=== PATIENT | male | born 1975 | race Asian ===

== ENCOUNTER 2019-10-01 18:19 | Inpatient (IN) ==
[2019-10-01] MEDS ORDERED: SODIUM CHLORIDE 0.9% 1000ML 1,000 ML IV ONE (18:33)
[2019-10-01] MEDS ORDERED: SODIUM CHLORIDE 0.9% 250 ML IV PRN ×2 (18:45→21:32)
[2019-10-01 18:59] LABS: iSTAT Creatinine 1.1 mg/dl (0.6-1.3); iSTAT Hemoglobin 5.4 g/dl (14.0-18.0); iSTAT Ionized Calcium 1.14 mmol/l (1.12-1.32); iSTAT Potassium 3.8 mmol/L (3.3-5.0)
[2019-10-01 19:10] LABS: Partial Thromboplastin Ratio 0.8; Partial Thromboplastin Time 23.4 Seconds (21.0-31.0)
[2019-10-01 19:19] LABS: Hematocrit (blood only) 15.1 % (42-52); Mean Corpuscular Hemoglobin 16.9 pg (25-34); Mean Corpuscular Hgb Conc 26.5 g/dL (32-36); Platelet Count 283 K/uL (130-400); Red Blood Count 2.36 M/uL (4.7-6.1); White Blood Count 3.33 K/uL (4.8-10.8)
[2019-10-01 19:23] LABS: Albumin Level 4.1 gm/dl (3.4-5.0); BUN Creatinine Ratio 7.7 (10-20); Bilirubin Direct 0.1 mg/dl (0-0.2); Calcium 8.2 mg/dl (8.5-10.1); Creatinine Clr Calc Pharmacy 73.4 ml/min; Est GFR (African American) 88.6; Est GFR (Non-African American) 76.4; Potassium 3.7 mmol/L (3.5-5.1)
[2019-10-01 19:26] LABS: Bilirubin,Total 0.6 mg/dl (0.2-1); Total Protein 7.1 gm/dl (6.4-8.2)
--- NOTE | 2019-10-01 19:39 | XRay Report ---
SINGLE VIEW CHEST CLINICAL HISTORY: Atypical chest pain. Anemia. FINDINGS: 2 AP, portable, upright chest radiographs are obtained. No prior studies are available for comparison at the time of dictation. The cardiomediastinal silhouette is unremarkable. The lungs and pleural spaces are clear. No pneumothorax is seen. The bony thorax is grossly intact. IMPRESSION: No active disease in the chest. ACT 112: Negative or not required by law. Electronically signed by: Zeb Neil M.D. 10/01/2019 7:38 PM
[2019-10-01 19:44] LABS: Anisocytosis Present; Basophils # (auto) 0.02 K/uL (0-0.2); Basophils % (auto) 0.6 %; Eosinophils # (auto) 0.03 K/uL (0-0.5); Eosinophils % (auto) 0.9 %; Giant Platelets 1+; Hypochromasia Present; Immature Granulocytes # (auto) 0.01 K/uL (0.00-0.02); Immature Granulocytes % (auto) 0.3 %; Lymphocytes # (auto) 0.76 K/uL (1.2-3.4); Lymphocytes % (auto) 22.8 %; Microcytosis Present; Monocytes # (auto) 0.38 K/uL (0.11-0.59); Monocytes % (auto) 11.4 %; Neutrophils # (auto) 2.13 K/uL (1.4-6.5); Polychromasia 1+; Schistocytes 1+; Tear Drop Cells Occasional
[2019-10-01] MEDS ORDERED: PANTOprazole 80 MG in DEXTROSE 5% 100 ML IV ONE (19:45)
[2019-10-01 19:48] LABS: Mean Platelet Volume 9.5 fL (7.4-10.4); RDW Coefficient of Variation 17.4 % (11.5-14.5); RDW Standard Deviation 41.1 fL (36.4-46.3); Reticulocyte % 1.5 % (0.5-2.0); Reticulocytes # 0.03 10^6/uL (0.02-0.10)
[2019-10-01] MEDS ORDERED: PANTOprazole 40 MG in DEXTROSE 5% 100 ML IV SCH (20:00)
[2019-10-01 20:13] LABS: T4 Free Thyroxine 0.93 ng/dl (0.8-1.6)
--- NOTE | 2019-10-01 20:22 | History & Physical Report ---
Date of Service October 01, 2019 Assessment & Plan (1) Lower GI bleed: This is a 44-year-old male who has no significant past medical history who presents to ED at the recommendation of provider secondary to anemia. In ED he remained hemodynamically stable. He was mildly tachycardic in the 90s. His H&H on admission was 4.0 and 15.1, WBC 3.33, BUN 9, creatinine 1.17, glucose 109, TSH WNL. 2 units PRBC have been ordered along with PPI bolus and gtt. Pt with active GIB x 1.5 yrs per pt. BRBPR with each BM. ? lower vs PUD although bun/cr stable, no significant epigastric pain, +hx of excedrin use daily CBC reveals microcytic anemia. Iron level 8, ferritin 0.8 Admit to PCU Transfer 2 units PRBC and repeat H&H Transfuse until hemoglobin greater than 7, lasix 20mg IV in between units Consult GI - discussed with Dr. Rizo PPI oral BID clear liquid diet NPO after midnight start on iron supplement Hemoglobin electrophoresis pending, rule out thalassemia (2) Microcytic anemia: r/o thalassemia Ferritin 0.8, iron 8 Iron supplement DVT ppx: NONE 2/2 to GIB Follow up: PCP at [facility] Disposition: pt admitted to PCU Pt was seen and examined in collaboration with Dr. Dwyer, please see addendum History of Present Illness Chief Complaint: Referred by provider secondary to anemia Primary Care Provider: [facility] This is a 44-year-old male who has no significant past medical history who presents to ED at the recommendation of provider secondary to anemia. He currently resides in [facility]. He states for the past 1.5 years he has been having bright red blood per rectum with every bowel movement. He only has blood whenever he moves his bowels. He moves his bowels every day to every other day. They are formed and normal for him. He elicits clotting of bright red blood filling toilet bowl and intermixed with bowel. He denies any painful bowel movements. His last BM was yesterday. Over the past 3 to 4 weeks he also admits to being dizzy with movement, substernal chest pain with movement and CORTEZ. All symptoms resolved within 1 to 2 minutes of resting. He becomes more easily fatigued and complains of myalgias. He denies of any recent illness. Over the past 3 to 4 weeks he states he has been unable to tolerate coffee. He would usually drink 2 to 3 cups daily but now is only able to drink 1 without getting, "sick to his stomach." Because of lack of caffeine he has been taking Excedrin 1-3 times daily for the past 3 to 4 weeks. He does elicit that he has been taking Pepcid for the past 3 months. Prior to that he was taking Zantac. He denies any alcohol use or any history of rectal bleeding in the past. He states that his father has a history of rectal bleeding due to hemorrhoids. He denies any family history of anemia. His maternal grandmother has a history of stomach cancer. He was a prior abuser of tobacco but has since ceased for the past 6 months since being in custodial. He denies any syncope, chest pain at rest, shortness of breath at rest, cough, hemoptysis, nausea, vomiting, abdominal pain, diarrhea, dysuria, increased urgency or frequency with urination. According to custodial guards he eats a soy-based diet and lacks meat. In ED he remained hemodynamically stable. He was mildly tachycardic in the 90s. His H&H on admission was 4.0 and 15.1, WBC 3.33, BUN 9, creatinine 1.17, glucose 109, TSH WNL. Iron studies pending on admission. 2 units PRBC have been ordered along with PPI bolus and gtt. Allergies Allergy/AdvReac Type Severity Reaction Status Date / Time papaya Allergy SHORTNESS Verified 10/01/19 20:03 OF BREATH pineapple Allergy SHORTNESS Verified 08/31/11 16:52 OF BREATH CANTALOPE AdvReac Unknown Uncoded 10/01/19 20:04 HONEYDEW AdvReac Unknown Uncoded 10/01/19 20:04 Home Medications Home Medications Medication Instructions Recorded Confirmed Type cagkfuo-uwahymrsyhyas-qknpjdfm 1 tab PO TID 10/01/19 10/01/19 History [Excedrin Extra Strength] carboxymethylcellulose sodium 1 drp OPR HS 10/01/19 10/01/19 History [Refresh Liquigel] famotidine [Pepcid] 20 mg PO BID 10/01/19 10/01/19 History Past Med/Surg History Medical History (Updated 10/01/19 @ 20:29 by Coral Larsen PA-C) No significant past medical history Surgical History (Updated 10/01/19 @ 20:23 by Coral Larsen PA-C) No significant past surgical history Family History (Updated 10/01/19 @ 20:24 by Coral Larsen PA-C) Grandmother (Maternal) Stomach cancer Father Bleeding hemorrhoid Social History (Updated 10/01/19 @ 20:25 by Coral Larsen PA-C) Preferred Language: Filipino Communication Ability: Effective Current Living Situation: Other Current Living Situation Comment: [facility] Feels Safe at Home: Yes Smoking Status: Former smoker Hx Alcohol Use: No Review of Systems Review of Systems: All systems reviewed & are unremarkable except as noted in HPI & below Physical Exam Physical Exam: Constitutional: WD/WN, +PALLOR, vitals as above, NAD, sitting up in bed, pleasant, conversing easily Head: Normocephalic, Atraumatic Eyes: PERRL, conjunctivae normal, anicteric sclerae ENMT: external ear and nose normal, oropharynx normal Neck: trachea midline, no thyromegaly normal visual inspection Respiratory: normal respiratory effort, lungs clear to auscultation, no wheeze, rales, rhonchi. Normal insp/exp effort, no accessory muscle use Cardiovascular: tachycardic rate, no murmur, no edema Vessels: no JVD or carotid bruit Chest: normal inspection of chest Abdomen: normal bowel sounds, soft, mild epigastric tenderness, no rebound, guarding, rigidity, no hepatosplenomegaly Musculoskeletal: no cyanosis or clubbing, extremities motor strength 5/5 Skin: no rashes, warm and dry normal turgor Neurologic: PERRL, EOMI, accommodation nl, no face palsy, no dysarthria CN's II-XI intact bilaterally and moves all extremities Psychiatric: A+Ox3, euthymic affect Lymphatic: no cervical or axillary lymphadenopathy : no external hemorrhoid Results & Data Vital Signs (Past 12 Hours) Vital Signs Temp Pulse Resp BP Pulse Ox 10/01/19 19:50 37.4 C 10/01/19 19:00 98 H 18 147/85 H 100 10/01/19 18:46 111 H 14 10/01/19 18:44 104 H 16 156/82 H 10/01/19 18:24 36.8 C 91 H 20 149/74 H 100 Laboratory Results Short CBC 10/01/19 Range/Units 18:41 WBC 3.33 L (4.8-10.8) K/uL Hgb 4.0 L* (14.0-18.0) g/dL Hct 15.1 L* (42-52) % Plt Count 283 (130-400) K/uL BMP 10/01/19 18:41 Sodium 138 Potassium 3.7 Chloride 107 Carbon Dioxide 25 BUN 9 Creatinine 1.17 Glucose 109 H Calcium 8.2 L Liver Function 10/01/19 Range/Units 18:41 Total Bilirubin 0.6 (0.2-1) mg/dl Direct Bilirubin 0.1 (0-0.2) mg/dl AST 4 L (15-37) U/L ALT 12 (12-78) U/L Alkaline Phosphatase 36 L (45-117) U/L Albumin 4.1 (3.4-5.0) gm/dl Diagnostic Findings CXR: IMPRESSION: No active disease in the chest. Medications Administered Discontinued Medications Sodium Chloride (Nss 1000ml) 1,000 mls @ 999 mls/hr IV .Q1H1M ONE Stop: 10/01/19 19:33 Last Infusion: 10/01/19 19:46 Dose: 0 mls/hr Documented by: [id number] Admin: 10/01/19 18:45 Dose: 999 mls/hr Documented by: [id number] Pantoprazole Sodium 80 mg/ (Dextrose) 120 mls @ 480 mls/hr IV NOW ONE Stop: 10/01/19 19:59 Last Admin: 10/01/19 20:13 Dose: 480 mls/hr Documented by: [id number] ECG Rate (beats per minute): 93 Rhythm: normal sinus Code Status & VTE Plan Code Status Full Code VTE Prophylaxis Plan VTE Prophylaxis will be ordered: No Supervising Physician Co-Signing Physician Notes Attending addendum The patient was seen in the emergency room He has been complaining of bright red blood per rectum painless for the last 3 or 4 weeks Condition has gotten worse for the last 3 or 4 days with "exertional shortness of breath and dizziness Noted to have hemoglobin of 4 at presentation No acute symptoms at rest On examination Very pale looking without distress Hemodynamically stable Chest-clear to auscultate bilaterally Heart-S1-S2, regular Abdomen-benign. 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
[2019-10-01 20:26] LABS: Ferritin 0.8 ng/ml (8-388); Thyroid Stimulating Hormone 1.41 uIu/ml (0.300-4.500)
[2019-10-01] MEDS ORDERED: FUROSEMIDE 40 MG/4 ML VIAL IV ONE (21:32)
[2019-10-01] MEDS ORDERED: ACETAMINOPHEN 325 MG TAB PO PRN (21:32)
[2019-10-01] MEDS ORDERED: ALUMINUM/MAGNESIUM SUSP 30 ML UDC PO PRN (21:32)
[2019-10-01] MEDS ORDERED: FUROSEMIDE 20 MG in SYRINGE 0 ML IV ONE (21:45)
[2019-10-01] MEDS: PANTOprazole 40 MG TAB PO SCH (22:14)
--- NOTE | 2019-10-02 00:06 | Emergency Department Note ---
Entered by Deepa Eddy acting as a scribe for History of Present Illness General Chief complaint: Abnormal Labs/Diagnostic Testing Stated complaint: CRITICAL LAB Time Seen by Provider: 10/01/19 18:29 Source: patient History of Present Illness Onset (ago): week(s) 4 Location: pelvis (blood in stools) Pain Consistency: + other (worsening) Relieved By: + none Associated symptoms: + denies other symptoms (abdominal pain), + shortness of breath and + other (dizziness) The patient is a 44 year old M who presents to the Emergency Room with complaints of worsening rectal bleeding that started 4 weeks ago. The patient is a prisoner. The patient states that he has had blood in his stools for the past year and a half. He describes his rectal bleeding as dripping. He notes that his rectal bleeding worsened 4 weeks ago. He states that he also experiences shortness of breath and dizziness. The patient was referred to the ED today, from the group home, due to his hemoglobin level being less than 4. The patient had a hemoglobin level of 3.9, as per recent lab work done on September 30, 2019. He denies that he is currently experiencing abdominal pain. He also denies any drug use, anal sex, and transfusions in the past. He states that he does not have any other medical problems. Home Medications Home Medications Medication Instructions Recorded Confirmed Type cowwjng-rbzkxxcdnxibe-qpdyeqvg 1 tab PO TID 10/01/19 10/01/19 History [Excedrin Extra Strength] carboxymethylcellulose sodium 1 drp OPR HS 10/01/19 10/01/19 History [Refresh Liquigel] famotidine [Pepcid] 20 mg PO BID 10/01/19 10/01/19 History Allergies Allergy/AdvReac Type Severity Reaction Status Date / Time papaya Allergy SHORTNESS Verified 10/01/19 20:03 OF BREATH pineapple Allergy SHORTNESS Verified 08/31/11 16:52 OF BREATH CANTALOPE AdvReac Unknown Uncoded 10/01/19 20:04 HONEYDEW AdvReac Unknown Uncoded 10/01/19 20:04 Past Med/Surg History Medical History (Updated 10/01/19 @ 22:44 by Deepa Eddy) No significant past medical history Surgical History (Updated 10/01/19 @ 20:23 by Coral L. Pataky, PA-C) No significant past surgical history Family History (Updated 10/01/19 @ 20:24 by Coral Larsen PA-C) Grandmother (Maternal) Stomach cancer Father Bleeding hemorrhoid Social History (Updated 10/01/19 @ 20:25 by Coral Larsen PA-C) Preferred Language: Syrian Communication Ability: Effective Loss Prevention Specialist Required: No Beliefs That Will Affect Care: None Current Living Situation: Other Current Living Situation Comment: [facility] Feels Safe at Home: Yes Safety Concerns: Feels Safe At This Time Smoking Status: Never smoker Hx Alcohol Use: No Hx Substance Use: No Review of Systems See HPI for pertinent positives & negatives. and A total of 10 systems reviewed and were otherwise negative Physical Exam Vital Signs Vital Signs - 24 hr 10/01/19 18:24 10/01/19 18:44 10/01/19 18:46 Temperature 36.8 C Temperature Source Oral Pulse Rate 91 H 104 H 111 H Pulse Rate from SpO2 Sensor Respiratory Rate 20 16 14 Respiratory Depth Normal Blood Pressure 149/74 H 156/82 H Blood Pressure Mean 99 108 Blood Pressure Position Sitting Pulse Oximetry 100 Oxygen Delivery Method Room Air Sepsis Recent Fever Within 48 Hours No Sepsis New/Unexplained Change in Mental Status No Sepsis Action Taken by Nursing No Action Required 10/01/19 19:00 10/01/19 19:15 10/01/19 19:30 Temperature Temperature Source Pulse Rate 98 H 99 H 96 H Pulse Rate from SpO2 Sensor 98 H 102 H 93 H Respiratory Rate 18 17 18 Respiratory Depth Blood Pressure 147/85 H 132/79 Blood Pressure Mean 102 103 Blood Pressure Position Pulse Oximetry 100 100 100 Oxygen Delivery Method Room Air Sepsis Recent Fever Within 48 Hours Sepsis New/Unexplained Change in Mental Status Sepsis Action Taken by Nursing 10/01/19 19:31 10/01/19 19:45 10/01/19 19:50 Temperature 37.4 C Temperature Source Oral Pulse Rate 100 H 97 H Pulse Rate from SpO2 Sensor 99 H 95 H Respiratory Rate 25 H 29 H Respiratory Depth Blood Pressure Blood Pressure Mean Blood Pressure Position Pulse Oximetry 100 100 Oxygen Delivery Method Sepsis Recent Fever Within 48 Hours Sepsis New/Unexplained Change in Mental Status Sepsis Action Taken by Nursing 10/01/19 20:00 10/01/19 20:01 Temperature Temperature Source Pulse Rate 96 H 96 H Pulse Rate from SpO2 Sensor 97 H 97 H Respiratory Rate 22 19 Respiratory Depth Blood Pressure 150/85 H Blood Pressure Mean 111 Blood Pressure Position Pulse Oximetry 100 100 Oxygen Delivery Method Sepsis Recent Fever Within 48 Hours Sepsis New/Unexplained Change in Mental Status Sepsis Action Taken by Nursing GENERAL: He is oriented to person, place, and time. He appears pale. He does not appear distressed. HENT: Exam performed. - Head: Normocephalic and atraumatic. - Right Ear: External ear normal. No mastoid tenderness. - Left Ear: External ear normal. No mastoid tenderness. - Mouth/Throat: The oropharynx is clear and moist. No trismus in the jaw. No dental abscesses or uvula swelling. No oropharyngeal exudate or tonsillar abscesses. EYES: Conjunctivae and EOM are normal. Pupils are equal, round, and reactive to light. Right eye exhibits no discharge. Left eye exhibits no discharge. No scleral icterus. NECK: Normal range of motion. Neck supple. No JVD present. No spinous process tenderness present. No carotid bruit present. No rigidity. No tracheal deviation and normal range of motion present. No Brudzinski's sign and no Kernig's sign noted. CV: Tachycardic rate, regular rhythm, normal heart sounds and intact distal pulses. There is no peripheral edema. Palpable radial pulses bue. PULM/CHEST: Effort normal and breath sounds normal. No respiratory distress. No stridor. He has no wheezes. He has no rales. - Chest Wall: He exhibits no tenderness. ABD: The abdomen is soft. Bowel sounds are normal. He has no distension. No mass is present. There is no tenderness. There is no rebound, no guarding, no Jimenez's sign and no tenderness at McBurney's point. Rovsig negative. Rectal exam: Hemoccult negative MUSC/SKEL: Normal range of motion. There is no peripheral edema, tenderness or deformity. LYMPH: No cervical adenopathy. NEURO: He is alert and oriented to person, place, and time. He has normal strength. No cranial nerve deficit or sensory deficit. Coordination and gait normal. GCS eye subscore is 4. GCS verbal subscore is 5. GCS motor subscore is 6. Cerebellar tests wnl. SKIN: Skin is warm and dry. He is not diaphoretic. He is pale. PSYCH: He has a normal mood and affect. Behavior is normal. Judgment and thought content normal. Course Course 183: The patient was evaluated in room B7. A complete history and physical exam was performed. 2012: Labs show a hemoglobin of 4. 2 units of packed red blood cells were ordered and blood consent was signed. [facility] Patient also started on Protonix. I reviewed the patient's case with Dr. Salcido, [facility]. He will evaluate the patient for further management. Administered Medications Pantoprazole Sodium (Protonix) 40 mg PO BID GEOVANNA Stop: 10/31/19 21:31 Last Admin: 10/01/19 22:14 Dose: 40 mg Documented by: [id number] Discontinued Medications Sodium Chloride (Nss 1000ml) 1,000 mls @ 999 mls/hr IV .Q1H1M ONE Stop: 10/01/19 19:33 Last Infusion: 10/01/19 19:46 Dose: 0 mls/hr Documented by: [id number] Admin: 10/01/19 18:45 Dose: 999 mls/hr Documented by: [id number] Pantoprazole Sodium 80 mg/ (Dextrose) 120 mls @ 480 mls/hr IV NOW ONE Stop: 10/01/19 19:59 Last Infusion: 10/01/19 20:28 Dose: 0 mls/hr Documented by: [id number] Admin: 10/01/19 20:13 Dose: 480 mls/hr Documented by: [id number] Pantoprazole Sodium 40 mg/ (Dextrose) 100 mls @ 20 mls/hr IV Q5H GEOVANNA Stop: 10/31/19 19:59 Last Infusion: 10/01/19 22:30 Dose: 0 mg/hr, 0 mls/hr Documented by: [id number] Admin: 10/01/19 20:31 Dose: 8 mg/hr, 20 mls/hr Documented by: [id number] Furosemide 20 mg/ Syringe 2 mls @ 4 mls/min IV ONE ONE Stop: 10/01/19 21:46 Last Admin: 10/01/19 22:14 Dose: 4 mls/min Documented by: [id number] Critical Care Time Critical Care Time: Yes Total Critical Care Time: 45 I have personally spent 45 minutes of critical care time in the direct manageme nt of this patient. This includes bedside care, interpretation of diagnostic studies, and testing, discussion with consultants, patient, and family members, and other required patient management activities. This 45 minutes is in excess of all separately billable procedures. Medical Decision Making Medical Records Attestation: I reviewed the patient's medical records. Home Medications Current Medication List: was personally reviewed by me Laboratory Data Attestation: I reviewed the patient's lab results. Result diagrams: 10/01/19 18:41 10/01/19 18:41 Lab Results 10/01/19 10/01/19 10/01/19 Range/Units 18:41 18:41 18:41 WBC 3.33 L (4.8-10.8) K/uL RBC 2.36 L (4.7-6.1) M/uL Hgb 4.0 L* (14.0-18.0) g/dL POC Hgb (14.0-18.0) g/dl Hct 15.1 L* (42-52) % POC Hct (42-52) % MCV 64.0 L (80-100) fL MCH 16.9 L (25-34) pg MCHC 26.5 L (32-36) g/dL RDW Std Deviation 41.1 (36.4-46.3) fL RDW Coeff of Liberty 17.4 H (11.5-14.5) % Plt Count 283 (130-400) K/uL MPV 9.5 (7.4-10.4) fL Immature Gran % (Auto) 0.3 % Neut % (Auto) 64.0 % Lymph % (Auto) 22.8 % Chase % (Auto) 11.4 % Eos % (Auto) 0.9 % Baso % (Auto) 0.6 % Reticulocyte % (Auto) 1.5 (0.5-2.0) % Immature Gran # (Auto) 0.01 (0.00-0.02) K/uL Neut # (Auto) 2.13 (1.4-6.5) K/uL Lymph # (Auto) 0.76 L (1.2-3.4) K/uL Chase # (Auto) 0.38 (0.11-0.59) K/uL Eos # (Auto) 0.03 (0-0.5) K/uL Baso # (Auto) 0.02 (0-0.2) K/uL Reticulocyte # 0.03 (0.02-0.10) 10^6/uL Giant Platelets 1+ Polychromasia 1+ Hypochromasia Present Anisocytosis Present Microcytosis Present Tear Drop Cells Occasional Schistocytes 1+ PT 11.0 (9.0-12.0) Seconds INR 1.0 (0.9-1.1) APTT 23.4 (21.0-31.0) Seconds PTT Ratio 0.8 POC Sodium (135-144) mmol/L Sodium (136-145) mmol/L POC Potassium (3.3-5.0) mmol/L Potassium (3.5-5.1) mmol/L POC Chloride (101-112) mmol/L Chloride (98-107) mmol/L Carbon Dioxide (21-32) mmol/L POC Total CO2 (24-31) mEq/l Anion Gap (3-11) POC Anion Gap (16-25) mmol/L POC BUN (7-18) mg/dl BUN (7-18) mg/dl Creatinine (0.6-1.4) mg/dl POC Creatinine (0.6-1.3) mg/dl Est Cr Clr Drug Dosing ml/min Est GFR ( Amer) Est GFR (Non-Af Amer) BUN/Creatinine Ratio (10-20) Glucose (70-99) mg/dl POC Glucose (other) (70-99) mg/dl Calcium (8.5-10.1) mg/dl POC Ioniz Calcium America (1.12-1.32) mmol/l Iron (35-175) mcg/dl TIBC (250-450) mcg/dl Transferrin (200-360) mg/dl Ferritin (8-388) ng/ml Total Bilirubin (0.2-1) mg/dl Direct Bilirubin (0-0.2) mg/dl AST (15-37) U/L ALT (12-78) U/L Alkaline Phosphatase (45-117) U/L Total Protein (6.4-8.2) gm/dl Albumin (3.4-5.0) gm/dl TSH (0.300-4.500) uIu/ml Free T4 (0.8-1.6) ng/dl Blood Type A Positive Blood Type Recheck Antibody Screen NEGATIVE Crossmatch See Detail 10/01/19 10/01/19 10/01/19 Range/Units 18:41 18:44 19:27 WBC (4.8-10.8) K/uL RBC (4.7-6.1) M/uL Hgb (14.0-18.0) g/dL POC Hgb 5.4 L* (14.0-18.0) g/dl Hct (42-52) % POC Hct 16 L* (42-52) % MCV (80-100) fL MCH (25-34) pg MCHC (32-36) g/dL RDW Std Deviation (36.4-46.3) fL RDW Coeff of Liberty (11.5-14.5) % Plt Count (130-400) K/uL MPV (7.4-10.4) fL Immature Gran % (Auto) % Neut % (Auto) % Lymph % (Auto) % Chase % (Auto) % Eos % (Auto) % Baso % (Auto) % Reticulocyte % (Auto) (0.5-2.0) % Immature Gran # (Auto) (0.00-0.02) K/uL Neut # (Auto) (1.4-6.5) K/uL Lymph # (Auto) (1.2-3.4) K/uL Chase # (Auto) (0.11-0.59) K/uL Eos # (Auto) (0-0.5) K/uL Baso # (Auto) (0-0.2) K/uL Reticulocyte # (0.02-0.10) 10^6/uL Giant Platelets Polychromasia Hypochromasia Anisocytosis Microcytosis Tear Drop Cells Schistocytes PT (9.0-12.0) Seconds INR (0.9-1.1) APTT (21.0-31.0) Seconds PTT Ratio POC Sodium 139 (135-144) mmol/L Sodium 138 (136-145) mmol/L POC Potassium 3.8 (3.3-5.0) mmol/L Potassium 3.7 (3.5-5.1) mmol/L POC Chloride 103 (101-112) mmol/L Chloride 107 (98-107) mmol/L Carbon Dioxide 25 (21-32) mmol/L POC Total CO2 24 (24-31) mEq/l Anion Gap 6.0 (3-11) POC Anion Gap 17.0 (16-25) mmol/L POC BUN 8 (7-18) mg/dl BUN 9 (7-18) mg/dl Creatinine 1.17 (0.6-1.4) mg/dl POC Creatinine 1.1 (0.6-1.3) mg/dl Est Cr Clr Drug Dosing 73.4 ml/min Est GFR ( Amer) 88.6 Est GFR (Non-Af Amer) 76.4 BUN/Creatinine Ratio 7.7 L (10-20) Glucose 109 H (70-99) mg/dl POC Glucose (other) 109 H (70-99) mg/dl Calcium 8.2 L (8.5-10.1) mg/dl POC Ioniz Calcium America 1.14 (1.12-1.32) mmol/l Iron 8 L (35-175) mcg/dl TIBC 439 (250-450) mcg/dl Transferrin 347 (200-360) mg/dl Ferritin 0.8 L (8-388) ng/ml Total Bilirubin 0.6 (0.2-1) mg/dl Direct Bilirubin 0.1 (0-0.2) mg/dl AST 4 L (15-37) U/L ALT 12 (12-78) U/L Alkaline Phosphatase 36 L (45-117) U/L Total Protein 7.1 (6.4-8.2) gm/dl Albumin 4.1 (3.4-5.0) gm/dl TSH 1.410 (0.300-4.500) uIu/ml Free T4 0.93 (0.8-1.6) ng/dl Blood Type Blood Type Recheck A Positive Antibody Screen Crossmatch Imaging Data Radiologist's Impression: Radiology results as stated below per my review and the radiologist's interpretation: SINGLE VIEW CHEST CLINICAL HISTORY: Atypical chest pain. Anemia. FINDINGS: 2 AP, portable, upright chest radiographs are obtained. No prior studies are available for comparison at the time of dictation. The cardiomediastinal silhouette is unremarkable. The lungs and pleural spaces are clear. No pneumothorax is seen. The bony thorax is grossly intact. IMPRESSION: No active disease in the chest. ACT 112: Negative or not required by law. Electronically signed by: Zeb Neil M.D. 10/01/2019 7:38 PM ECG Data Attestation: I personally reviewed and interpreted this ECG as follows: Indication: + SOB/dyspnea Rate (beats per minute): 93 Rhythm: + sinus rhythm ECG Intervals/blocks: + Normal QRS, + Normal ND and + Normal QT-c ECG ST segments: no ST depression and no ST elevation Blood Pressure Blood Pressure Findings: Elevated blood pressure Blood Pressure Disposition: further management by hospitalist MDM Narrative Labs show a hemoglobin of 4. 2 units of packed red blood cells were ordered and blood consent was signed. [facility] Patient also started on Protonix. I reviewed the patient's c ase with Dr. Salcido, [facility]. He will evaluate the patient for further management. Impression & Plan GI bleed, Anemia Discharge Plan Visit Data *Final* Discharge Date/Time: 10/01/19 21:30 Chief Complaint: Abnormal Labs/Diagnostic Testing Stated Complaint: CRITICAL LAB ED Provider: Silvestre Morel Discharge Problem: GI bleed, Anemia Patient Disposition: Admitted As Inpatient Discharge Instructions Interventions: ED Discharge Assessment Last Done: 10/01/19 21:30 Discharge Problem: GI bleed Qualifiers: GI bleed type/associated pathology: unspecified gastrointestinal hemorrhage type Qualified Code(s): K92.2 - Gastrointestinal hemorrhage, unspecified Anemia Qualifiers: Anemia type: unspecified type Qualified Code(s): D64.9 - Anemia, unspecified The scribe's documentation has been prepared under my direction and personally reviewed by me in its entirety. I confirm that the note above accurately reflects all work, treatment, procedures, and medical decision making performed by me.
[2019-10-02 01:58] LABS: BUN Creatinine Ratio 6.9 (10-20); Calcium 8.4 mg/dl (8.5-10.1); Est GFR (African American) 105.8; Est GFR (Non-African American) 91.3; Potassium 3.5 mmol/L (3.5-5.1)
[2019-10-02 02:09] LABS: Hematocrit (blood only) 20.4 % (42-52); Hemoglobin 6.2 g/dL (14.0-18.0); Mean Corpuscular Hgb Conc 30.4 g/dL (32-36); Mean Corpuscular Volume 72.3 fL (80-100); Mean Platelet Volume 8.8 fL (7.4-10.4); Platelet Count 219 K/uL (130-400); RDW Coefficient of Variation 22.7 % (11.5-14.5); RDW Standard Deviation 59.7 fL (36.4-46.3); Red Blood Count 2.82 M/uL (4.7-6.1); White Blood Count 4.46 K/uL (4.8-10.8)
[2019-10-02 02:10] LABS: Anisocytosis Present; Basophils # (auto) 0.02 K/uL (0-0.2); Basophils % (auto) 0.4 %; Eosinophils # (auto) 0.05 K/uL (0-0.5); Eosinophils % (auto) 1.1 %; Immature Granulocytes # (auto) 0.01 K/uL (0.00-0.02); Immature Granulocytes % (auto) 0.2 %; Lymphocytes # (auto) 0.73 K/uL (1.2-3.4); Lymphocytes % (auto) 16.4 %; Monocytes # (auto) 0.42 K/uL (0.11-0.59); Monocytes % (auto) 9.4 %; Neutrophils # (auto) 3.23 K/uL (1.4-6.5); Neutrophils % (auto) 72.5 %; Polychromasia 1+
[2019-10-02] MEDS ORDERED: SODIUM CHLORIDE 0.9% 250 ML IV PRN (02:21)
[2019-10-02] MEDS ORDERED: FUROSEMIDE 10 MG in SYRINGE 0 ML IV ONE (04:00)
[2019-10-02] MEDS: SODIUM CHLORIDE 0.9% 1000ML 1,000 ML IV SCH ×2 (04:54→16:12)
[2019-10-02] MEDS: PANTOprazole 40 MG TAB PO SCH ×2 (07:54→20:59)
--- NOTE | 2019-10-02 08:42 | Hospitalist Progress Note ---
Date of Service October 02, 2019 Assessment & Plan (1) Lower GI bleed: Acute blood loss anemia: This is a 44-year-old male who has no significant past medical history Presented with symptomatic anemia H&H 11/09.1 Dizzy spell lightheadedness, dyspnea on exertion No evidence of any active bleeding on presentation,-not had any episode of bright red blood per rectum-since admission No black tarry stool, Received total 3 units of PRBC transfusion overnight, hemoglobin 6.2 in the AM lab Repeat H&H ordered for noon/we will transfusion as needed to keep hemoglobin above 7 Check all stool samples for Hemoccult Pt reports of with active GIB x 1.5 yrs per pt. BRBPR with each BM. ? Patient noticed blood dripping in the toilet bowl after each bowel movements for more than a year which has gotten worse in last 3-4 weeks Patient reports of taking Excedrin daily for headache No report of hematemesis, no black or tarry stool, no abdominal pain or cramps Patient remained hemodynamically stable overnight discussed case with on-call GI Dr. Rizo- No need for emergent colonoscopy-ordered for clear liquid diet CT abdomen pelvis with p.o. and IV contrast for evaluation of colonic pathology Microcytic anemia: MCV 64, severe iron deficiency: Iron level 8/ferritin 08 Ordered for IV Venofer Hemoglobin electrophoresis and pertinent lab work rule out thalassemia (2) Microcytic anemia: r/o thalassemia Ferritin 0.8, iron 8 Iron supplement (3) Acute blood loss anemia: Due to above-plan of care as above DVT ppx: SCD and teds, Disposition: Patient is a prisoner at [facility] continue to monitor patient in telemetry for symptomatic anemia/GI bleed Admission and Anticipated Discharge Date Admission Date: October 01, 2019 Subjective Patient seen and examined in room 220 bed 1 Did not had any episode of GI bleed/bright red blood per rectum since admission Denies of any shortness of breath, no chest heaviness No abdominal pain no nausea vomiting Vitals stable, no tachycardia noted Discussed with on-call GI, no plan for emergent colonoscopy today, ordered for clear liquid diet Monitor H&H and vitals closely Review of Systems Review of Systems: All systems reviewed & are unremarkable except as noted in HPI & below Constitutional: no fever, no chills, no fatigue and no anorexia Gastrointestinal: + hematemesis; no abdominal pain, no nausea, no vomiting, no coffee ground emesis, no diarrhea/loose stools (Since admission) and no blood in stools (Since admission) Neurologic: + dizziness Physical Exam Constitutional: WD/WN, vitals as above Eyes: PERRL, conjunctivae normal, anicteric sclerae ENMT: external ear and nose normal, oropharynx normal Neck: trachea midline, no thyromegaly Respiratory: normal respiratory effort, lungs clear to auscultation Cardiovascular: RRR, no murmur, no edema Gastrointestinal (Abdomen): normal bowel sounds, soft, nontender, no hepatosp lenomegaly Musculoskeletal: no cyanosis or clubbing, extremities motor strength 5/5 Skin: no rashes, warm and dry Neurologic: PERRL, EOMI, accommodation nl, no face palsy, no dysarthria Psychiatric: A+Ox3, euthymic affect Results & Data ([facility]) Vital Signs (Past 12 Hours) Vital Signs Temp Pulse Pulse Resp BP BP Pulse Ox 10/02/19 07:42 37.3 C 85 18 103/64 100 10/02/19 03:26 36.6 C 70 16 124/73 100 10/02/19 03:18 37 C 68 18 114/67 100 10/02/19 03:17 37 C 77 18 114/67 100 10/02/19 03:11 36.8 C 76 16 115/63 100 10/02/19 02:54 36.9 C 66 16 123/73 100 10/02/19 00:08 82 10/02/19 00:00 36.9 C 95 H 16 136/82 100 10/01/19 23:48 36.9 C 75 16 122/73 100 10/01/19 23:30 36.9 C 79 16 152/87 H 100 10/01/19 23:29 36.8 C 79 19 139/80 100 10/01/19 23:00 36.7 C 74 16 133/79 100 10/01/19 22:47 36.9 C 83 136/80 100 10/01/19 22:30 36.9 C 83 16 136/80 100 10/01/19 21:32 36.8 C 88 84 16 148/79 H 100 10/01/19 21:30 36.9 C 83 20 136/80 100 10/01/19 20:46 93 H 17 100 10/01/19 20:45 37.3 C 89 90 16 140/81 140/81 100 10/01/19 20:37 94 H 17 100 10/01/19 20:36 88 15 133/85 100 10/01/19 20:31 99 H 16 100 10/01/19 20:30 37.4 C 93 H 17 155/86 H 100
[2019-10-02] MEDS: IRON SUCROSE 400 MG in SODIUM CHLORIDE 0.9% 250 ML IV SCH (10:02)
[2019-10-02] MEDS ORDERED: IOVERSOL 100ml IV PRN (11:57)
--- NOTE | 2019-10-02 12:07 | Gastrointestinal Consultation ---
Date of Consultation October 02, 2019 History of Present Illness Attending Physician: Vika Tejada MD Reason for consult: anemia 44 yo M with no sig PMH reports chronic painless BRBPR with bowel movements for the past 2 years now admit with profound iron deficiency anemia. He describes small amount of red blood dripping from anus with every bowel movement. Denies anal pain, itching; denies constipation, straining. No other GI symptoms -- denies abdominal pain, n/v. On Excedrin, uses 1-2 tabs daily; also takes Pepcid. He was admitted after he complained of 3-4 weeks fo dizziness and was found to have an hgb of 4.4 with MCV of 64. His ferritin is < 1. Overnight, his BP is stable with systolic in the the low 100's. H received 3 units of blood with rise in hgb from [address] was ordered by hospitalist, although pt has not complained of abdominal pain. He is receiving Venofer at present. Denies hematuria, hemoptysis. PE: comfortable, thin, NAD. HEENT: oc clear, sclera pale but moist CV: RRR Resp: CTA Abd: soft NT Extrem: no edema Rectal: external hemorrhoids that prolapse with valsalva, no fissure. A/P: Profound CHRISTIANO without evidence of acute GIB. Chronic rectal bleeding, hemorrhoids. - His history is suggestive of CHRISTIANO from perianal bleeding. Plan EGD and cscopy on Friday to evaluate for other sources of bleeding, as well as bx for sprue/Hp infection. Anticipate surgery consult for hemorrhoid therapy if scopes are unremarkable. - Suspicion for helminth is low, but will check stool studies for this as he reports being born in [facility]. Allergies Allergy/AdvReac Type Severity Reaction Status Date / Time melon Allergy Unknown Unknown Verified 10/02/19 10:10 papaya Allergy SHORTNESS Verified 10/01/19 20:03 OF BREATH pineapple Allergy SHORTNESS Verified 08/31/11 16:52 OF BREATH Home Medications Home Medications Medication Instructions Recorded Confirmed Type onycuuw-nmfrixzagfclg-uduodrms 1 tab PO TID 10/01/19 10/01/19 History [Excedrin Extra Strength] carboxymethylcellulose sodium 1 drp OPR HS 10/01/19 10/01/19 History [Refresh Liquigel] famotidine [Pepcid] 20 mg PO BID 10/01/19 10/01/19 History Patient History Medical History (Updated 10/02/19 @ 08:31 by Vika Tejada MD) No significant past medical history Surgical History (Updated 10/01/19 @ 20:23 by Coral Larsen PA-C) No significant past surgical history Family History (Updated 10/01/19 @ 20:24 by Coral Larsen PA-C) Grandmother (Maternal) Stomach cancer Father Bleeding hemorrhoid Social History (Updated 10/01/19 @ 20:25 by Coral Larsen PA-C) Preferred Language: Serbian Communication Ability: Effective [employer] Person Required: No Beliefs That Will Affect Care: None Current Living Situation: Other Current Living Situation Comment: [facility] Feels Safe at Home: Yes Safety Concerns: Feels Safe At This Time Smoking Status: Never smoker Hx Alcohol Use: No Hx Substance Use: No Results & Data ([facility]) Vital Signs (Past 12 Hours) Vital Signs Temp Pulse Pulse Resp BP BP Pulse Ox 10/02/19 08:54 69 10/02/19 07:42 37.3 C 85 18 103/64 100 10/02/19 03:26 36.6 C 70 16 124/73 100 10/02/19 03:18 37 C 68 18 114/67 100 10/02/19 03:17 37 C 77 18 114/67 100 10/02/19 03:11 36.8 C 76 16 115/63 100 10/02/19 02:54 36.9 C 66 16 123/73 100 10/02/19 00:08 82
--- NOTE | 2019-10-02 12:13 | CT Scan Report ---
CT abd pelvis oral and IV con CLINICAL HISTORY: 44 years-old Male presenting with GI bleed. TECHNIQUE: Multidetector CT of the abdomen and pelvis was performed after the administration of oral and intravenous contrast. IV contrast: 93 mL of Optiray 320. One or more dose lowering techniques wer e used consistent with the principles of ALARA (as low as reasonably achievable), including automatic exposure control, mA or kV adjustment to individual patient size, and/or use of iterative reconstruc tion. COMPARISON: None. CT DOSE (mGy.cm): The estimated cumulative dose is 395.38 mGy.cm. 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 Lung bases: Normal heart size. No pericardial or pleural effusion. No focal infiltrate or nodule at t he lung bases. Liver: Normal morphology. No liver lesion. Patent hepatic vasculature. Biliary: No intrahepatic or extrahepatic biliary ductal dilatation. Normal gallbladder. Pancreas: Normal. Spleen: Normal. Adrenal glands: Normal. Kidneys and ureters: Normal. No hydronephrosis. Bladder: Normal. Pelvic organs: Prostate and seminal vesicles normal. Bowel: Mild stool burden throughout normal caliber colon. The appendix is normal. No bowel obstructio n. Peritoneal cavity: No free fluid or intraperitoneal gas. Lymph nodes: No enlarged lymph nodes in the abdomen or pelvis. Vasculature: Aorta and IVC patent and normal in caliber. Abdominal wall: Normal. Musculoskeletal: Normal. IMPRESSION: 1. No acute intra-abdominal pathology. The presence of positive oral contrast limit detection for ga strointestinal hemorrhage. 2. Stool burden may suggest mild constipation. ACT 112: Negative or not required by law. Electronically signed by: Reilly Jordan M.D. 10/02/2019 12:12 PM
[2019-10-02 20:29] LABS: Hematocrit (blood only) 24.8 % (42-52); Hemoglobin 7.6 g/dL (14.0-18.0)
[2019-10-03 01:05] LABS: Hematocrit (blood only) 22.6 % (42-52); Hemoglobin 6.9 g/dL (14.0-18.0)
[2019-10-03] MEDS ORDERED: SODIUM CHLORIDE 0.9% 250 ML IV PRN (01:10)
[2019-10-03] MEDS ORDERED: FUROSEMIDE 10 MG in SYRINGE 0 ML IV ONE (03:00)
[2019-10-03 07:02] LABS: Basophils # (auto) 0.01 K/uL (0-0.2); Basophils % (auto) 0.2 %; Eosinophils % (auto) 2.1 %; Hematocrit (blood only) 28.6 % (42-52); Hemoglobin 8.8 g/dL (14.0-18.0); Lymphocytes # (auto) 0.66 K/uL (1.2-3.4); Lymphocytes % (auto) 13.7 %; Mean Corpuscular Hgb Conc 30.8 g/dL (32-36); Mean Corpuscular Volume 74.7 fL (80-100); Mean Platelet Volume 9.8 fL (7.4-10.4); Monocytes # (auto) 0.56 K/uL (0.11-0.59); Monocytes % (auto) 11.6 %; Neutrophils # (auto) 3.48 K/uL (1.4-6.5); Neutrophils % (auto) 72.4 %; Platelet Count 221 K/uL (130-400); RDW Coefficient of Variation 22.5 % (11.5-14.5); RDW Standard Deviation 61.3 fL (36.4-46.3); Red Blood Count 3.83 M/uL (4.7-6.1); White Blood Count 4.81 K/uL (4.8-10.8)
[2019-10-03 07:35] LABS: BUN Creatinine Ratio 4.1 (10-20); Calcium 8.8 mg/dl (8.5-10.1); Creatinine Clr Calc Pharmacy 80.2 ml/min; Est GFR (African American) 102.2; Est GFR (Non-African American) 88.1; Potassium 3.7 mmol/L (3.5-5.1)
[2019-10-03 07:44] LABS: Anisocytosis Present; Hypochromasia Present; Microcytosis Present
[2019-10-03] MEDS: PANTOprazole 40 MG TAB PO SCH ×2 (09:13→20:33)
[2019-10-03] MEDS: IRON SUCROSE 400 MG in SODIUM CHLORIDE 0.9% 250 ML IV SCH (09:16)
--- NOTE | 2019-10-03 11:52 | Gastroenterology Progress Note ---
Date of Service October 03, 2019 Assessment & Plan Admission and Anticipated Discharge Date Admission Date: October 01, 2019 Subjective No complaints. No bleeding. Received 4 Units PRBC with increase in hgb from 4 to 8.8. Also received Venofer yesterday. Plabn push enteroscopy and cscopy tomorrow. Begin oral iron and folate post procedures. Results & Data ([facility]) Vital Signs (Past 12 Hours) Vital Signs Temp Pulse Pulse Resp BP BP Pulse Ox 10/03/19 11:44 36.8 C 79 18 132/84 100 10/03/19 08:00 68 10/03/19 07:57 36.7 C 66 18 129/79 100 10/03/19 04:45 36.8 C 77 20 117/72 98 10/03/19 03:55 36.4 C L 68 16 124/77 98 10/03/19 03:25 36.9 C 74 16 119/69 98 10/03/19 01:54 36.8 C 75 16 121/72 99 10/02/19 23:48 75 10/02/19 23:35 37.0 C 70 20 143/85 H 99
[2019-10-03] MEDS ORDERED: METOCLOPRAMIDE HCL 5 MG TABLET PO ONE (11:54)
--- NOTE | 2019-10-03 14:15 | Hospitalist Progress Note ---
Date of Service October 03, 2019 Assessment & Plan (1) Lower GI bleed: Acute blood loss anemia: Due to GI bleed Received 4 Units PRBC with increase in hgb from 4 to 8.8. Appreciate input from gastroenterology Plan for EGD and colonoscopy tomorrow And will be started with p.o. iron and folic acid post procedure This is a 44-year-old male who has no significant past medical history Presented with symptomatic anemia H&H 11/09.1 Dizzy spell lightheadedness, dyspnea on exertion Pt reports of with active GIB x 1.5 yrs per pt. BRBPR with each BM. ? Patient noticed blood dripping in the toilet bowl after each bowel movements for more than a year which has gotten worse in last 3-4 weeks The abdomen pelvis :shows no evidence of any intra-abdominal pathology Microcytic anemia: MCV 64, severe iron deficiency: Iron level 8/ferritin 08 ordered for IV Venofer 400 mg daily X3 days Hemoglobin electrophoresis and pertinent lab work rule out thalassemia pt will be discharged with PO iron supplement and Folic acid (2) Microcytic anemia: r/o thalassemia Ferritin 0.8, iron 8 Iron supplement ordered (3) Acute blood loss anemia: DVT ppx: SCD and teds, Disposition: Patient is a prisoner at [facility] continue to monitor patient in telemetry for symptomatic anemia/GI bleed Admission and Anticipated Discharge Date Admission Date: October 01, 2019 Subjective Had bloody bowel movement overnight, Denies of any abdominal pain, no nausea or vomiting, vitals remained stable Denies of of any dizzy spell or lightheadedness Review of Systems Gastrointestinal: + blood in stools; no abdominal pain, no nausea and no vomiting Physical Exam Constitutional: WD/WN, vitals as above Eyes: PERRL, conjunctivae normal, anicteric sclerae ENMT: external ear and nose normal, oropharynx normal Neck: trachea midline, no thyromegaly Respiratory: normal respiratory effort, lungs clear to auscultation Cardiovascular: RRR, no murmur, no edema Gastrointestinal (Abdomen): normal bowel sounds, soft, nontender, no hepatosplenomegaly Musculoskeletal: no cyanosis or clubbing, extremities motor strength 5/5 Skin: no rashes, warm and dry Neurologic: PERRL, EOMI, accommodation nl, no face palsy, no dysarthria Psychiatric: A+Ox3, euthymic affect Results & Data ([facility]) Vital Signs (Past 12 Hours) Vital Signs Temp Pulse Pulse Resp BP BP Pulse Ox 10/03/19 11:44 36.8 C 79 18 132/84 100 10/03/19 08:00 68 10/03/19 07:57 36.7 C 66 18 129/79 100 10/03/19 04:45 36.8 C 77 20 117/72 98 10/03/19 03:55 36.4 C L 68 16 124/77 98 10/03/19 03:25 36.9 C 74 16 119/69 98 10/03/19 01:54 36.8 C 75 16 121/72 99
[2019-10-03] MEDS ORDERED: LAVAGE SOLUTION 4000ML PO SCH (17:00)
[2019-10-03] MEDS ORDERED: bisacodyL 5 MG TABEC PO ONE (17:54)
[2019-10-03 20:08] LABS: Hematocrit (blood only) 29.2 % (42-52); Hemoglobin 8.7 g/dL (14.0-18.0)
[2019-10-04 00:26] LABS: Hematocrit (blood only) 29.2 % (42-52)
[2019-10-04 00:44] LABS: Amphetamines+Metham, Urine Neg (Neg); Barbiturates, Urine Neg (Neg); Benzodiazepine, Urine Neg (Neg); Cocaine, Urine Neg (Neg); MDMA (Ecstacy), Urine Neg (Neg); Methadone, Urine Neg (Neg); Opiate, Urine Neg (Neg); Phencyclidine, Urine Neg (Neg)
[2019-10-04 06:27] LABS: Hemoglobin 7.7 g/dL (14.0-18.0)
[2019-10-04] MEDS ORDERED: SODIUM CHLORIDE 0.9% 250 ML IV PRN ×2 (06:45→10:21)
--- NOTE | 2019-10-04 10:17 | Anesthesiology Consultation ---
Date of Service October 04, 2019 Assessment & Plan (1) Encounter for pre-operative examination: Chart Review Chart Review: Acceptable Risk for Surgery and Patient NOT seen in Pre Admission Testing Consults Requested none ASA ASA3 Proposed Anesthesia Anesthesia Type: MAC Risk / Benefits Reviewed With: PT / POA / Parent / Guardian, Accepts Plan and Informed Consent Obtained History Surgery Operation Date: 10/04/19 17:00 Proposed Procedures p Colonoscopy with Small Bowel Enteroscopy Dr. Hassan - Annika Hassan MD Height/Weight Height: 5 ft 10 in Weight: 61.2 kg Allergies Allergy/AdvReac Type Severity Reaction Status Date / Time melon Allergy Unknown Unknown Verified 10/02/19 10:10 papaya Allergy SHORTNESS Verified 10/01/19 20:03 OF BREATH pineapple Allergy SHORTNESS Verified 08/31/11 16:52 OF BREATH Medications Home Medications Medication Instructions Recorded Confirmed Last Taken pdpilbm-lwotcfdndbmcw-ypqastgv 1 tab PO TID 10/01/19 10/01/19 Unknown [Excedrin Extra Strength] carboxymethylcellulose sodium 1 drp OPR HS 10/01/19 10/01/19 Unknown [Refresh Liquigel] famotidine [Pepcid] 20 mg PO BID 10/01/19 10/01/19 Unknown Active Medications Generic Name Dose Route Start Last Admin Trade Name Freq PRN Reason Stop Dose Admin Iron Sucrose 400 mg/ Sodium 270 mls @ 108 mls/hr 10/02/19 09:00 10/03/19 12:05 Chloride IV 10/04/19 11:29 Infused DAILY@0900 GEOVANNA Infusion Ioversol 93 ml 10/02/19 11:57 10/02/19 11:57 Optiray 320 100ml IV 10/06/19 11:56 93 ml ONCE PRN Administration Interaction Checking Pantoprazole Sodium 40 mg 10/01/19 21:32 10/03/19 20:33 Protonix PO 10/31/19 21:31 40 mg BID GEOVANNA Administration NPO Date Last Intake of Fluids: 10/03/19 Time Last Intake of Fluids: 23:59 Date Last Intake of Solids: 10/01/19 Time Last Intake of Solids: 17:00 Past Medical History Medical History No significant past medical history Exercise / Class Metabolic Activity II 4-5 Yardwork/Stairs/Walk up hill Positive for sob and heart pounding, dizziness Past Family History Family History Grandmother (Maternal) Stomach cancer Father Bleeding hemorrhoid Past Surgical History Surgical History No significant past surgical history Past Anesthesia History No Family Hx of Anesthesia Complications History of PONV Hx of Motion Sickness (Mild) Social History Smoking Status: Never smoker Hx Alcohol Use: No Hx Substance Use: No Review of Systems Patient denies active symptoms of GERD. Physical Exam Vital Signs Last Vital Signs Temp 37.0 C 10/04/19 10:56 Pulse 79 10/04/19 10:56 Resp 18 10/04/19 10:56 BP 147/95 H 10/04/19 10:56 Pulse Ox 100 10/04/19 10:56 Constitutional not obese ENMT Mouth: no TMJ abnormality and oral opening not small Thyromental Distance: > or= 3.5 Finger Breadths Mallampati Class: II Neck normal visual inspection and + facial hair; neck extension not limited Respiratory normal respiratory effort Auscultation: lungs clear to auscultation bilaterally Cardiovascular Rate/Rhythm: regular rate and regular rhythm Heart Sounds: no murmur Neurologic moves all extremities Psychiatric Orientation: alert and oriented x 3 Testing Laboratory Results 10/04/19 06:09 10/03/19 06:50 PT 11.0 Seconds (9.0-12.0) 10/01/19 18:41 INR 1.0 (0.9-1.1) 10/01/19 18:41 APTT 23.4 Seconds (21.0-31.0) 10/01/19 18:41 Blood Type A Positive 10/01/19 18:41 Antibody Screen NEGATIVE 10/01/19 18:41 10/02/19 13:35 Escherichia coli Shiga Toxins Test - Preliminary Stool Stool Culture - Preliminary No Salmonella isolated to date, No Shigella isolated to date, No Campylobacter jejuni isolated to date.
--- NOTE | 2019-10-04 10:55 | History & Physical Bridge Note ---
Date of Service October 04, 2019 History & Physical Bridge Note I have examined the patient, reviewed the History & Physical and in the interval since the performance of the History & Physical I have noted the following changes of clinical significance: no changes noted EGD and colonoscopy today
--- NOTE | 2019-10-04 11:56 | GI REPORT ---
Patient Name: Blake Hall Procedure Date: 10/04/2019 10:50 AM Date of : 1975 Admit Type: Inpatient Age: 44 Gender: Male Attending MD: Annika Hassan MD Procedure: Small bowel enteroscopy Providers: Annika Hassan MD Referring MD: Vika Ford Indications: Hematochezia Medicines: Propofol per Anesthesia Complications: No immediate complications. Estimated Blood Loss: Estimated blood loss: none. Procedure: Pre-Anesthesia Assessment: - Prior to the procedure, a History and Physical was performed, and patient medications, allergies and sensitivities were reviewed. The patient's tolerance of previous anesthesia was reviewed. - The risks and benefits of the procedure and the sedation options and risks were discussed with the patient. All questions were answered and informed consent was obtained. - Patient identification and proposed procedure were verified prior to the procedure by the physician and the nurse. The procedure was verified in the procedure room. - Pre-procedure physical examination revealed no contraindications to sedation. After obtaining informed consent, the endoscope was passed under direct vision. Throughout the procedure, the patient's blood pressure, pulse, and oxygen saturations were monitored continuously. The scope was introduced through the mouth and advanced to the mid-jejunum. The small bowel enteroscopy was accomplished without difficulty. The patient tolerated the procedure well. Findings: The examined esophagus was normal. The entire examined stomach was normal. There was no evidence of significant pathology in the entire examined duodenum. There was no evidence of significant pathology in the entire examined portion of jejunum. Impression: - Normal esophagus. - Normal stomach. - Normal examined duodenum. - The examined portion of the jejunum was normal. Recommendation: - Perform a colonoscopy today. Annika Hassan MD 10/04/2019 11:56:23 AM This report has been signed electronically. Note Initiated On: 10/04/2019 10:50 AM Number of Addenda: 0 I attest to the content of the Intraoperative Record and orders documented therein, exceptions below {[id number]}
--- NOTE | 2019-10-04 12:01 | GI REPORT ---
Patient Name: Blake Hall Procedure Date: 10/04/2019 10:49 AM Date of : 1975 Admit Type: Inpatient Age: 44 Gender: Male Attending MD: Annika Hassan MD Procedure: Colonoscopy Providers: Annika Hassan MD Referring MD: Vika Ford Indications: Rectal bleeding Medicines: Propofol per Anesthesia Complications: No immediate complications. Estimated Blood Loss: Estimated blood loss: none. Procedure: Pre-Anesthesia Assessment: - Prior to the procedure, a History and Physical was performed, and patient medications, allergies and sensitivities were reviewed. The patient's tolerance of previous anesthesia was reviewed. - The risks and benefits of the procedure and the sedation options and risks were discussed with the patient. All questions were answered and informed consent was obtained. - Patient identification and proposed procedure were verified prior to the procedure by the physician and the nurse. The procedure was verified in the procedure room. - Pre-procedure physical examination revealed no contraindications to sedation. After I obtained informed consent, the scope was passed under direct vision. Throughout the procedure, the patient's blood pressure, pulse, and oxygen saturations were monitored continuously. The scope was introduced through the anus and advanced to the terminal ileum. The colonoscopy was performed without difficulty. The patient tolerated the procedure well. The quality of the bowel preparation was good. The terminal ileum, ileocecal valve, appendiceal orifice, and rectum were photographed. Findings: The perianal and digital rectal examinations were normal. The terminal ileum appeared normal. Bilious stain noted. No blood in the entire examined colon. Brown stool noted. Non-bleeding internal hemorrhoids were found during retroflexion with stigmata of recent bleeding. The hemorrhoids were large. Impression: - The examined portion of the ileum was normal. - Non-bleeding internal hemorrhoids. This seems the likely source of bleeding. - No specimens collected. Recommendation: - To visualize the small bowel, arrange video capsule endoscopy at appointment to be scheduled as OP. - Refer to a surgeon for hemorrhoidal banding as OP. - Recall GI as needed. Annika Hassan MD 10/04/2019 12:01:39 PM This report has been signed electronically. Note Initiated On: 10/04/2019 10:49 AM Number of Addenda: 0 I attest to the content of the Intraoperative Record and orders documented therein, exceptions below {[id number]}
--- NOTE | 2019-10-04 12:10 | Electrocardiogram Report ---
Test Reason : Blood Pressure : / mmHG Vent. Rate : 093 BPM Atrial Rate : 093 BPM P-R Int : 150 ms QRS Dur : 094 ms QT Int : 348 ms P-R-T Axes : 082 088 052 degrees QTc Int : 432 ms Normal sinus rhythm Incomplete right bundle branch block Borderline ECG No previous ECGs available Confirmed by Evangelista Oliveira ([id number]) on 10/04/2019 12:10:14 PM Referred By: [facility] Confirmed By:Evangelista Oliveira
--- NOTE | 2019-10-04 12:20 | Anesthesiology Progress Note ---
Date of Service October 04, 2019 Anesthesia Post Procedure Vital Signs Vital Signs: Temp Pulse Pulse Resp BP BP BP 10/04/19 12:09 64 18 106/65 10/04/19 11:53 65 18 106/91 10/04/19 10:56 37.0 C 79 18 147/95 H 10/04/19 10:40 37 C 69 16 122/70 10/04/19 10:10 36.7 C 68 16 118/74 10/04/19 09:10 36.8 C 66 16 120/72 10/04/19 08:40 36.9 C 67 16 118/76 10/04/19 08:25 36.9 C 68 16 116/72 10/04/19 08:09 37 C 65 14 125/75 10/04/19 07:26 36.7 C 69 17 131/74 10/04/19 03:09 36.8 C 76 18 104/60 10/04/19 00:00 36.9 C 73 64 18 127/83 10/03/19 19:18 36.6 C 65 17 124/78 10/03/19 16:15 36.9 C 84 18 108/59 L Pulse Ox 10/04/19 12:09 100 10/04/19 11:53 100 10/04/19 10:56 100 10/04/19 10:40 99 10/04/19 10:10 99 10/04/19 09:10 100 10/04/19 08:40 99 10/04/19 08:25 100 10/04/19 08:09 100 10/04/19 07:26 100 10/04/19 03:09 99 10/04/19 00:00 99 10/03/19 19:18 100 10/03/19 16:15 100 Transfer of Care Handoff Completed per policy Notes Mental Status: alert / awake / arousable and participated in evaluation Nausea / Vomiting: adequately controlled Pain: adequately controlled Airway Patency, RR, SpO2: stable & adequate BP & HR: stable & adequate Hydration State: stable & adequate Anesthetic Complications: no major complications apparent and Pt Satisfied with anesthetic care
--- NOTE | 2019-10-04 12:31 | Hospitalist Progress Note ---
Date of Service October 04, 2019 Assessment & Plan (1) Lower GI bleed: Acute blood loss anemia/lower GI bleed/secondary to rectal internal hemorrhoid bleed Due to lower GI bleed, colonoscopy showed large internal hemorrhoids with stigmata of recent bleeding Required total 5 units of PRBC transfusion since admission History of hemorrhoidal bleed for over a year, presented with profound anemia, required multiple PRBC transfusion during this hospital admission Patient will benefit with inpatient surgical evaluation General surgery consult requested for hemorrhoid banding Ordered for diet, pt is stable to be transferred to medical floor This is a 44-year-old male who has no significant past medical history Presented with symptomatic anemia H&H 15.1 Dizzy spell lightheadedness, dyspnea on exertion Pt reports of with active GIB x 1.5 yrs per pt. BRBPR with each BM. ? Patient noticed blood dripping in the toilet bowl after each bowel movements for more than a year which has gotten worse in last 3-4 weeks The abdomen pelvis :shows no evidence of any intra-abdominal pathology Appreciate input from GI, status post EGD, normal study, colonoscopy large internal hemorrhoids on rectum with evidence of recent bleed We will need general surgery consult for hemorrhoid banding Microcytic anemia: Possible secondary to GI bleed secondary to internal hemorrhoids-eating to iron deficiency anemia MCV 64, severe iron deficiency: Iron level 8/ferritin 08 Patient given IV Venofer pt will be discharged with PO iron supplement and Folic acid (2) Microcytic anemia: r/o thalassemia Ferritin 0.8, iron 8 Iron supplement ordered (3) Acute blood loss anemia: Due to ongoing internal hemorrhoid bleed, management as outlined above DVT ppx: SCD and teds, Disposition: Patient is a prisoner at [facility] Admission and Anticipated Discharge Date Admission Date: October 01, 2019 Subjective Returned from EGD colonoscopy/no complaint of abdominal pain nausea, diet advanced to regular, tolerating well Stable to be transferred to medical floor Surgery eval requested secondary to large internal hemorrhoids causing ongoing lower GI bleed Review of Systems Gastrointestinal: + blood in stools; no abdominal pain, no nausea and no vomiting Neurologic: + dizziness Physical Exam Constitutional: WD/WN, vitals as above Eyes: PERRL, conjunctivae normal, anicteric sclerae ENMT: external ear and nose normal, oropharynx normal Neck: trachea midline, no thyromegaly Respiratory: normal respiratory effort, lungs clear to auscultation Cardiovascular: RRR, no murmur, no edema Gastrointestinal (Abdomen): normal bowel sounds, soft, nontender, no hepatosplenomegaly Musculoskeletal: no cyanosis or clubbing, extremities motor strength 5/5 Skin: no rashes, warm and dry Neurologic: PERRL, EOMI, accommodation nl, no face palsy, no dysarthria Psychiatric: A+Ox3, euthymic affect Results & Data ([facility]) Vital Signs (Past 12 Hours) Vital Signs Temp Pulse Pulse Resp BP BP BP 10/04/19 12:25 58 L 18 123/80 10/04/19 12:09 64 18 106/65 10/04/19 11:53 65 18 106/91 10/04/19 10:56 37.0 C 79 18 147/95 H 10/04/19 10:40 37 C 69 16 122/70 10/04/19 10:10 36.7 C 68 16 118/74 10/04/19 09:10 36.8 C 66 16 120/72 10/04/19 08:40 36.9 C 67 16 118/76 10/04/19 08:25 36.9 C 68 16 116/72 10/04/19 08:09 37 C 65 14 125/75 10/04/19 07:26 36.7 C 69 17 131/74 10/04/19 03:09 36.8 C 76 18 104/60 Pulse Ox 10/04/19 12:25 100 10/04/19 12:09 100 10/04/19 11:53 100 10/04/19 10:56 100 10/04/19 10:40 99 10/04/19 10:10 99 10/04/19 09:10 100 10/04/19 08:40 99 10/04/19 08:25 100 10/04/19 08:09 100 10/04/19 07:26 100 10/04/19 03:09 99
[2019-10-04] MEDS: PANTOprazole 40 MG TAB PO SCH ×2 (13:28→21:16)
[2019-10-04] MEDS: IRON SUCROSE 400 MG in SODIUM CHLORIDE 0.9% 250 ML IV SCH (13:28)
--- NOTE | 2019-10-04 14:43 | Surgery Consultation ---
Date of Consultation October 04, 2019 Assessment & Plan (1) Anemia: Patient seen with Dr. Jackson, there is no need for urgent hemorrhoidectomy, a banding procedure is not an option for him. Agree with GI recs for capsule endoscopy and possible outpatient surgical or colorectal eval. Supervising Physician Co-Signing Physician Notes Patient seen and examined, labs and imaging reviewed, agree with above. 44-year-old incarcerated male with 1-1/2 years of blood after bowel movements. He was otherwise stable, until about 3 to 4 weeks ago when he started noticing some fatigue and lightheadedness. He had a CBC performed which showed significant anemia. He was then sent to the emergency department where repeat labs confirmed anemia. He was otherwise stable with a mild tachycardia and normo-to hypertensive. He is received several units of blood and his hematocrit is been stable. He had a colonoscopy performed today which showed a large internal hemorrhoid, no other abnormalities. He had a upper endoscopy performed which showed no abnormalities. Recommendation was for outpatient evaluation for hemorrhoidectomy versus banding and outpatient capsule endoscopy. On exam he is afebrile with stable vitals. His H&H was 8/24 down slightly from 04/23. Rectal exam with external hemorrhoid, nonthrombosed. ASA with normal sphincter tone, no gross blood, no masses or internal hemorrhoid palpable. CT was unremarkable. Patient appears to have an acute on chronic anemia, possibly secondary to bleeding internal hemorrhoid. The patient is not on any blood thinners and I would seriously consider further work-up with a capsule endoscopy prior to intervention. As this is a chronic problem, I would recommend outpatient evaluation for the hemorrhoidectomy. He may benefit from a colorectal referral as an outpatient. Okay to advance diet, surgery will follow peripherally, call with questions or concerns History of Present Illness Attending Physician: Vika Tejada MD History of Present Illness 44 y/o male inmate brought to the ED for evaluation of anemia after having 3-4 weeks of dizziness and heart racing and has approx 18 months of bleeding with BMs. Has had continued bleeding during admission that colors toilet water. Has normal BM daily, no significant diarrhea or constipation. Has not been on any anticoagulants or NSAIDs other than an occasional Excedrin for headaches. Allergies Allergy/AdvReac Type Severity Reaction Status Date / Time melon Allergy Unknown Unknown Verified 10/02/19 10:10 papaya Allergy SHORTNESS Verified 10/01/19 20:03 OF BREATH pineapple Allergy SHORTNESS Verified 08/31/11 16:52 OF BREATH Home Medications Home Medications Medication Instructions Recorded Confirmed Type [id number]-noxghbdlpizct-[id number] 1 tab PO TID 10/01/19 10/01/19 History [Excedrin Extra Strength] carboxymethylcellulose sodium 1 drp OPR HS 10/01/19 10/01/19 History [Refresh Liquigel] famotidine [Pepcid] 20 mg PO BID 10/01/19 10/01/19 History Patient History Medical History No significant past medical history Surgical History No significant past surgical history Family History Grandmother (Maternal) Stomach cancer Father Bleeding hemorrhoid Social History Preferred Language: [place] Communication Ability: Effective Disaster Recovery Specialist Required: No Beliefs That Will Affect Care: None Current Living Situation: Other Current Living Situation Comment: [facility] [place] Feels Safe at Home: Yes Safety Concerns: Feels Safe At This Time Smoking Status: Never smoker Hx Alcohol Use: No Hx Substance Use: No Review of Systems Constitutional: + fatigue Gastrointestinal: + blood in stools; no abdominal pain, no nausea, no vomiting, no change in bowel habits, no change in stools, no constipation, no diarrhea/loose stools and no melena Physical Exam Constitutional: WD/WN, vitals as above Gastrointestinal (Abdomen): Rectal Exam: + hemorrhoids Results & Data Vital Signs (Past 12 Hours) Vital Signs Temp Pulse Pulse Resp BP BP BP 10/04/19 13:52 36.8 C 71 16 137/81 10/04/19 12:39 36.6 C 63 18 143/83 H 10/04/19 12:25 58 L 18 123/80 10/04/19 12:09 64 18 106/65 10/04/19 11:53 65 18 106/91 10/04/19 10:56 37.0 C 79 18 147/95 H 10/04/19 10:40 37 C 69 16 122/70 10/04/19 10:10 36.7 C 68 16 118/74 10/04/19 09:10 36.8 C 66 16 120/72 10/04/19 08:40 36.9 C 67 16 118/76 10/04/19 08:25 36.9 C 68 16 116/72 10/04/19 08:09 37 C 65 14 125/75 10/04/19 07:26 36.7 C 69 17 131/74 10/04/19 03:09 36.8 C 76 18 104/60 Pulse Ox 10/04/19 13:52 100 10/04/19 12:39 100 10/04/19 12:25 100 10/04/19 12:09 100 10/04/19 11:53 100 10/04/19 10:56 100 10/04/19 10:40 99 10/04/19 10:10 99 10/04/19 09:10 100 10/04/19 08:40 99 10/04/19 08:25 100 10/04/19 08:09 100 10/04/19 07:26 100 10/04/19 03:09 99 PG Care Time/CCT Total # of Minutes Spent Total Time Spent with Patient: Total time spent is greater than 50% in human service coordinator rdination of care (as documented) at patient's floor/unit and/or counseling patient: Coding Level of Care Code 17636 Inpt Consult Level 2 Diagnoses Anemia D64.9 Anemia type: unspecified type (1) Anemia Anemia type: unspecified type Qualified Code(s): D64.9 - Anemia, unspecified
[2019-10-04] MEDS: FOLIC ACID 1 MG TAB PO SCH (16:25)
[2019-10-04] MEDS: FERROUS SULFATE 325 MG TAB PO SCH (16:26)
--- NOTE | 2019-10-04 18:25 | Hospitalist Progress Note ---
Date of Service October 04, 2019 Assessment & Plan Admission and Anticipated Discharge Date Admission Date: October 01, 2019 Subjective Attending addendum: Surgery consultation reviewed -Per surgery, Given large internal hemorrhoids: Banding procedure is not an option Recommend outpatient colorectal surgery referral for hemorrhoidectomy Patient may also benefit with capsule endoscopy to rule out small bowel bleeding Present physician Dr. Paulino phone number #[phone] will be updated Ordered to repeat H&H in a.m. Patient will be discharged back to [facility] tomorrow if hemoglobin remains stable Vika Tejada MD Results & Data ([facility]) Vital Signs (Past 12 Hours) Vital Signs Temp Pulse Pulse Resp BP BP BP 10/04/19 15:19 36.7 C 76 18 110/69 10/04/19 13:52 36.8 C 71 16 137/81 10/04/19 12:39 36.6 C 63 18 143/83 H 10/04/19 12:25 58 L 18 123/80 10/04/19 12:09 64 18 106/65 10/04/19 11:53 65 18 106/91 10/04/19 10:56 37.0 C 79 18 147/95 H 10/04/19 10:40 37 C 69 16 122/70 10/04/19 10:10 36.7 C 68 16 118/74 10/04/19 09:10 36.8 C 66 16 120/72 10/04/19 08:40 36.9 C 67 16 118/76 10/04/19 08:25 36.9 C 68 16 116/72 10/04/19 08:09 37 C 65 14 125/75 10/04/19 07:26 36.7 C 69 17 131/74 Pulse Ox 10/04/19 15:19 99 10/04/19 13:52 100 10/04/19 12:39 100 10/04/19 12:25 100 10/04/19 12:09 100 10/04/19 11:53 100 10/04/19 10:56 100 10/04/19 10:40 99 10/04/19 10:10 99 10/04/19 09:10 100 10/04/19 08:40 99 10/04/19 08:25 100 10/04/19 08:09 100 10/04/19 07:26 100
[2019-10-04] MEDS: ANUSOL SUPP 1 EA PR SCH (21:16)
[2019-10-05 05:32] LABS: Hemoglobin 8.7 g/dL (14.0-18.0)
[2019-10-05] MEDS: FERROUS SULFATE 325 MG TAB PO SCH (07:36)
[2019-10-05] MEDS: FOLIC ACID 1 MG TAB PO SCH (07:37)
[2019-10-05] MEDS: PANTOprazole 40 MG TAB PO SCH (07:37)
[2019-10-05] MEDS: ANUSOL SUPP 1 EA PR SCH (07:39)
--- NOTE | 2019-10-05 08:06 | Anesthesiology Progress Note ---
Date of Service October 05, 2019 Anesthesia Post Procedure Vital Signs Vital Signs: Temp Pulse Pulse Resp BP BP BP 10/05/19 07:11 36.8 C 61 16 114/71 10/04/19 23:40 36.8 C 62 16 145/86 H 10/04/19 15:19 36.7 C 76 18 110/69 10/04/19 13:52 36.8 C 71 16 137/81 10/04/19 12:39 36.6 C 63 18 143/83 H 10/04/19 12:25 58 L 18 123/80 10/04/19 12:09 64 18 106/65 10/04/19 11:53 65 18 106/91 10/04/19 10:56 37.0 C 79 18 147/95 H 10/04/19 10:40 37 C 69 16 122/70 10/04/19 10:10 36.7 C 68 16 118/74 10/04/19 09:10 36.8 C 66 16 120/72 10/04/19 08:40 36.9 C 67 16 118/76 10/04/19 08:25 36.9 C 68 16 116/72 10/04/19 08:09 37 C 65 14 125/75 Pulse Ox 10/05/19 07:11 99 10/04/19 23:40 99 10/04/19 15:19 99 10/04/19 13:52 100 10/04/19 12:39 100 10/04/19 12:25 100 10/04/19 12:09 100 10/04/19 11:53 100 10/04/19 10:56 100 10/04/19 10:40 99 10/04/19 10:10 99 10/04/19 09:10 100 10/04/19 08:40 99 10/04/19 08:25 100 10/04/19 08:09 100 Notes Mental Status: alert / awake / arousable and participated in evaluation Nausea / Vomiting: adequately controlled Pain: adequately controlled Airway Patency, RR, SpO2: stable & adequate BP & HR: stable & adequate Hydration State: stable & adequate
--- NOTE | 2019-10-05 10:18 | Hospitalist Progress Note ---
Date of Service October 05, 2019 Assessment & Plan (1) Lower GI bleed: Acute blood loss anemia/lower GI bleed/secondary to rectal internal hemorrhoid bleed This is a 44-year-old male who has no significant past medical history Presented with symptomatic anemia H&H 4/15.1 Dizzy spell lightheadedness, dyspnea on exertion Reports of chronic bright red blood per rectum for last 1.5 years, Patient required total 5 units of PRBC transfusion this admission CT abdomen pelvis: No pathology Had EGD: Normal study Colonoscopy: Large internal hemorrhoids on rectum with evidence of recent bleeding Surgery consulted, appreciate input -Per surgery, Given large internal hemorrhoids: Banding procedure is not an option Recommend outpatient colorectal surgery referral for hemorrhoidectomy Patient may also need capsule endoscopy to rule out small bowel bleeding Jail physician at [facility] Dr. Paulino phone number #[phone] updated Stable will be discharged back to [facility] Acute blood loss anemia: Secondary to lower GI bleed secondary to internal hemorrhoids Required a total of 5 units of PRBC transfusion this admission H&H has been stable last 24 hours/with stable hemodynamics Patient is discharged back to [facility] today ordered lab work check: CBC in few days ( 10/08/19) then weekly or earlier as needed for increased bleeding per rectum with sympt oms of dizzy spells lightheadedness or shortness of breath Patient asked not to take NSAIDs, avoid Excedrin (2) Microcytic anemia: Microcytic anemia: Possible secondary to GI bleed secondary to internal hemorrhoids-eating to iron deficiency anemia MCV 64, severe iron deficiency: Iron level 8/ferritin 08 Patient given IV Venofer pt will be discharged with PO iron supplement and Folic acid (3) Acute blood loss anemia: Due to ongoing internal hemorrhoid bleed, management as outlined above DVT ppx: SCD and teds, Disposition: Patient is discharged back to [facility] Admission and Anticipated Discharge Date Admission Date: October 01, 2019 Anticipated date of discharge: 10/05/19 Subjective Patient offers no complaint tolerating diet, No complaint of nausea vomiting or abdominal pain Had a 3 episode of bowel movement with painless bright red blood per rectum, Hemoglobin remained stable 8.4, no acute drop noted since yesterday Patient denies of any shortness of breath dyspnea on exertion or chest heaviness Stable to be discharged back to [facility] today Review of Systems Gastrointestinal: + blood in stools; no abdominal pain, no nausea and no vomiting Neurologic: + dizziness Physical Exam Constitutional: WD/WN, vitals as above Eyes: PERRL, conjunctivae normal, anicteric sclerae ENMT: external ear and nose normal, oropharynx normal Neck: trachea midline, no thyromegaly Respiratory: normal respiratory effort, lungs clear to auscultation Cardiovascular: RRR, no murmur, no edema Gastrointestinal (Abdomen): normal bowel sounds, soft, nontender, no hepatosplenomegaly Musculoskeletal: no cyanosis or clubbing, extremities motor strength 5/5 Skin: no rashes, warm and dry Neurologic: PERRL, EOMI, accommodation nl, no face palsy, no dysarthria Psychiatric: A+Ox3, euthymic affect Results & Data ([facility]) Vital Signs (Past 12 Hours) Vital Signs Temp Pulse Resp BP Pulse Ox 10/05/19 07:11 36.8 C 61 16 114/71 99 10/04/19 23:40 36.8 C 62 16 145/86 H 99
--- NOTE | 2019-10-05 11:01 | Discharge Summary ---
Date of Service October 05, 2019 Admission HPI Per Admitting Provider This is a 44-year-old male who has no significant past medical history who presents to ED at the recommendation of provider secondary to anemia. He currently resides in [facility]. He states for the past 1.5 years he has been having bright red blood per rectum with every bowel movement. He only has blood whenever he moves his bowels. He moves his bowels every day to every other day. They are formed and normal for him. He elicits clotting of bright red blood filling toilet bowl and intermixed with bowel. He denies any painful bowel movements. His last BM was yesterday. Over the past 3 to 4 weeks he also admits to being dizzy with movement, substernal chest pain with movement and CORTEZ. All symptoms resolved within 1 to 2 minutes of resting. He becomes more easily fatigued and complains of myalgias. He denies of any recent illness. Over the past 3 to 4 weeks he states he has been unable to tolerate coffee. He would usually drink 2 to 3 cups daily but now is only able to drink 1 without getting, "sick to his stomach." Because of lack of caffeine he has been taking Excedrin 1-3 times daily for the past 3 to 4 weeks. He does elicit that he has been taking Pepcid for the past 3 months. Prior to that he was taking Zantac. He denies any alcohol use or any history of rectal bleeding in the past. He states that his father has a history of rectal bleeding due to hemorrhoids. He denies any family history of anemia. His maternal grandmother has a history of stomach cancer. He was a prior abuser of tobacco but has since ceased for the past 6 months since being in half-way. He denies any syncope, chest pain at rest, shortness of breath at rest, cough, hemoptysis, nausea, vomiting, abdominal pain, diarrhea, dysuria, increased urgency or frequency with urination. According to half-way guards he eats a soy-based diet and lacks meat. In ED he remained hemodynamically stable. He was mildly tachycardic in the 90s. His H&H on admission was 4.0 and 15.1, WBC 3.33, BUN 9, creatinine 1.17, glucose 109, TSH WNL. Iron studies pending on admission. 2 units PRBC have been ordered along with PPI bolus and gtt. Principal Diagnosis Lower GI bleed/blood per rectum-secondary to hemorrhoids Acute blood loss anemia requiring multiple blood transfusion due to lower GI bleed Discharge Exam Constitutional WD/WN, vitals as above Eyes PERRL, conjunctivae normal, anicteric sclerae ENMT external ear and nose normal, oropharynx normal Neck trachea midline, no thyromegaly Respiratory normal respiratory effort, lungs clear to auscultation Cardiovascular RRR, no murmur, no edema Gastrointestinal (Abdomen) normal bowel sounds, soft, nontender, no hepatosplenomegaly Musculoskeletal no cyanosis or clubbing, extremities motor strength 5/5 Skin no rashes, warm and dry Neurologic PERRL, EOMI, accommodation nl, no face palsy, no dysarthria Psychiatric A+Ox3, euthymic affect Discharge Data Allergies Allergy/AdvReac Type Severity Reaction Status Date / Time melon Allergy Unknown Unknown Verified 10/02/19 10:10 papaya Allergy SHORTNESS Verified 10/01/19 20:03 OF BREATH pineapple Allergy SHORTNESS Verified 08/31/11 16:52 OF BREATH Consultations 10/01/19 19:34 ED Decision to Admit Stat 10/01/19 21:32 Consult Case Management - Discharge Planning Routine Consult Gastroenterology Routine 10/04/19 12:29 Consult General Surgery Routine Procedures Performed Operation Date: 10/04/19 17:00 Actual Procedures p Small Bowel Enteroscopy EGD - Annika Hassan MD s Colonoscopy - Annika Hassan MD Ordered Studies 10/02/19 08:43 CT abd pelvis oral and IV con Routine Hospital Course (1) Lower GI bleed: Acute blood loss anemia/lower GI bleed/secondary to rectal internal hemorrhoid bleed This is a 44-year-old male who has no significant past medical history Presented with symptomatic anemia H&H 4/15.1 Dizzy spell lightheadedness, dyspnea on exertion Reports of chronic bright red blood per rectum for last 1.5 years, Patient required total 5 units of PRBC transfusion this admission CT abdomen pelvis: No pathology Had EGD: Normal study Colonoscopy: Large internal hemorrhoids on rectum with evidence of recent bleeding Surgery consulted, appreciate input -Per surgery, Given large internal hemorrhoids: Banding procedure is not an option Recommend outpatient colorectal surgery referral for hemorrhoidectomy Patient may also need capsule endoscopy to rule out small bowel bleeding pt will follow up with [facility] physician at [facility] Dr. Paulino Stable will be discharged back to [facility] today Acute blood loss anemia: Secondary to lower GI bleed secondary to internal hemorrhoids Required a total of 5 units of PRBC transfusion this admission H&H has been stable last 24 hours/with stable hemodynamics Patient is discharged back to [facility] today ordered lab work check: CBC in few days ( 10/08/19) then weekly or earlier as needed for increased bleeding per rectum with symptoms of dizzy spells lightheadedness or shortness of breath Patient asked not to take NSAIDs, avoid Excedrin (2) Microcytic anemia: Microcytic anemia: Possible secondary to GI bleed secondary to internal hemorrhoids-eating to iron deficiency anemia MCV 64, severe iron deficiency: Iron level 8/ferritin 08 Patient given IV Venofer pt will be discharged with PO iron supplement and Folic acid (3) Acute blood loss anemia: Due to ongoing internal hemorrhoid bleed, management as outlined above DVT ppx: SCD and teds, Disposition: Patient is discharged back to [facility] Total Time Total Time Spent Total Time Spent (In Minutes): 40 mins Total Time Includes: Examination of the Patient, Discharge Planning, Medication Reconciliation and Communication With Other Providers Discharge Plan Discharge Items [facility] Reason For Visit: ANEMIA,LGIB Discharge Diagnosis: Lower GI bleed/blood per rectum-secondary to hemorrhoids Acute blood loss anemia requiring multiple blood transfusion due to lower GI bleed Activity: Resume your previous activity Non-emergency contact: Primary Care Provider Call non-emergency contact if: you have any medication questions and your symptoms worsen Follow-up/Referrals: Mo [place] DO, [facility] [Physician] - (Surgery follow-up in 2-3 weeks for evaluation hemorrhoidectomy) [facility] [place] [Primary Care Provider] - Diet: Regular Diet Comment: At plenty of fruits and vegetable/increased fiber intake to prevent constipation Ambulatory Orders: Complete Blood Count no Diff (Routine) Timeframe: [id number] Location: Determined by Patient Ordered By: Vika Crenshaw Attending Provider Instructions: Patient will need a surgical procedure hemorrhoidectomy, follow-up with surgery Dr. [place] in clinic Will need capsule endoscopy: To assess for small bowel bleed DO NOT TAKE EXCEDRIN, DO NOT TAKE ASPIRIN , ADVIL, ALEVE, MOTRIN, IBUPROFEN , NAPROXEN -AVOID ALL PAIN MEDICATIONS FORM NSAID GROUP Notify your doctor with increased blood in stool Anytime you feel dizzy lightheaded, worsening of fatigue, or shortness of breath with activity Pending Studies at Discharge: Yes Studies:: Lab work: CBC on Friday10/08/19 Then weekly or as needed for increased symptoms of lower GI bleed/blood in stool, dizzy spells lightheadedness shortness of breath Stand-Alone Forms: [facility] Skilled Items Patient informed of condition?: Yes Discharge Level of Care: Other Communicable Disease: No Discharge Prognosis: Stable Lines: None Urinary Catheter: No Medications and DC Order Prescriptions: New hydrocortisone [Anusol-HC] 2.5 % cream with perineal applicator 1 appln FL Q6H Qty: 30 RF: 0 docusate sodium [Colace] 100 mg capsule 100 mg PO BID Qty: 60 RF: 0 polyethylene glycol 3350 [Miralax] 17 gram powder in packet 17 gm PO BID Qty: 100 RF: 0 ferrous sulfate 325 mg (65 mg iron) Tablet,Delayed Release (Dr/Ec) 325 mg PO BIDM 30 Days Qty: 60 RF: 0 folic acid 1 mg tablet 1 mg PO DAILY Qty: 30 RF: 0 Continued famotidine [Pepcid] 20 mg Tablet 20 mg PO BID RF: 0 Refresh Liquigel 1 % Drops, Liquid Gel 1 drp OPR HS RF: 0 Discontinued Excedrin Extra Strength 250-250-65 mg Tablet 1 tab PO TID RF: 0 Discharge Orders: Discharge Order (Routine); Ordered 10/05/19 Ordered By: Vika Frank/Other Patient Handouts: Hemorrhoids Self Care, Bleeding Rectal, Hemorrh oid Surg, Hemorrhoids, ED Hemorrhoids, Hydrocortisone suppositories Admission Data Admit Date/Time: 10/01/19 20:12 Attending Provider: Vika Tejada Admit Provider: John Dwyer Primary Care Provider: Dustin LINDSEY Other Providers: Gokul Salcido ; Bryson Rizo ; Irineo Mustafa ; Lupe James ; Chris Hill ; Yaneli Villavicencio ; Ronnie Means ; Rubio Rod ; Katalina Healy ; Harshil Joshi ; Sonya Rosado ; Jordan Vargas Jr ; Lore Quezada ; Nafisa Bazzi Other Interventions: Discharge Summary Assessment (RN) Last Done: 10/05/19 10:30
[2019-10-13 01:03] LABS: HCT 13.4 % (38.5-50.0); HGB 3.6 g/dL (13.2-17.1); Hemoglobin E DNR %; Hemoglobin Variant 1 DNR; Hemoglobin Variant 2 DNR; MCH 17.4 pg (27.0-33.0); MCV 64.7 FL (80.0-100.0); RBC 2.07 Mill/uL (4.20-5.80); RDW 18.6 % (11.0-15.0)
== END 2019-10-05 15:10 | DRG 394 ==
LOC: ED 18:19 → SUATTDRO 20:12 → 2S 20:12 → 3W 10-04 12:50